=== PATIENT | female | born 1975 | race Caucasian/White ===

== ENCOUNTER 2017-04-11 11:30 | Outpatient (RCR) | payer BC ==
[~2017-04-11 11:30] MED LIST: PRENATAL VITAMINS
== END 2017-05-02 09:58 | disposition home or self-care (01) ==
PROVIDERS: ATTEND Podiatrist
DX: S82.851D Displaced trimalleolar fracture of right lower leg, subsequent encounter for closed fracture with routine healing (principal); W10.9XXD Fall (on) (from) unspecified stairs and steps, subsequent encounter